=== PATIENT | male | born 1960 | race Caucasian/White ===

== ENCOUNTER 2018-08-15 07:42 | Day surgery (SDC) | payer MEDICARE, MEDICAID ==
[~2018-08-15] VITALS: Ht 182.9 cm; Wt 63.6 kg
[~2018-08-15 07:42] MED LIST: ALBU18HF2 INH; BUDE10.2 INH; GUAI100L97 PO; HYDR-565 PO; OMEP20CA10 PO
[2018-08-15 07:50] VITALS: BP 139/87
[2018-08-15] MEDS ORDERED: MIDAZolam 5mg/5ml vial ONE (08:14)
[2018-08-15] MEDS ORDERED: fentaNYL/PF 50MCG/1 ML 2ML syringe ONE (08:14)
[2018-08-15] MEDS ORDERED: LIDOcaine Viscous 15ml cup ONE (08:14)
[2018-08-15 09:08] VITALS: BP 131/77
[2018-08-15 09:18] VITALS: BP 113/82
[2018-08-15 09:28] VITALS: BP 116/72
[2018-08-15 09:38] VITALS: BP 128/80
== END 2018-08-15 09:39 | disposition home or self-care (01) ==
LOC: GI LAB 07:42
PROVIDERS: ATTEND Internal Medicine Gastroenterology
DX: K29.50 Unspecified chronic gastritis without bleeding (principal); K31.89 Other diseases of stomach and duodenum; K21.0 Gastro-esophageal reflux disease with esophagitis; M06.9 Rheumatoid arthritis, unspecified; F17.210 Nicotine dependence, cigarettes, uncomplicated; F10.21 Alcohol dependence, in remission; Z85.118 Personal history of other malignant neoplasm of bronchus and lung; Z79.891 Long term (current) use of opiate analgesic; Z98.890 Other specified postprocedural states; Z79.899 Other long term (current) drug therapy
CPT/HCPCS: 43239; J2250; J3010; J7030; 99152; A4620

== ENCOUNTER → 2019-11-24 | Emergency (ER) | payer MEDICARE, MEDICAID ==
[~2019-11-24] VITALS: Ht 182.9 cm; Wt 75.0 kg
[~2019-11-24] MED LIST changes: -GUAI100L97 PO; +HYDR-4353 PO; -HYDR-565 PO; +KETAMINE IV ONE; +LIDOcaine Viscous 15ml cup MM PRN; +NORMAL SALINE IV ONE; -OMEP20CA10 PO; +OMEP20CA15 PO; +famotidine/PF 10 mg/ml inj IV ONE; +fentaNYL/PF 50MCG/1 ML 2ML syringe IV ONE; +ketamine 10mg/ml 20ml inj IV ONE; +ketamine 50 mg/ml 10ml vial IV ONE; +mag hydrox/Alum hydrox/simeth 30ml oral suspension PO ONE; +normal saline 1000ML IV soln IVB ONE; +normal saline 1000ml 1,000 ML IV ONE; +ondansetron/PF 4mg/2ml inj IV ONE; +pantoprazole 40 MG vial IV ONE; +sucralfate 1gm/10ml UD suspension PO SCH
--- NOTE | 2019-11-24 11:10 | NUR ---
Discussed pt's pain and emesis with dayton wayne; new order received for fentynal and zofran
[2019-11-24 11:21] LABS: BASOPHILS # (AUTO) 0.2 X10'3 (0-0.2); BASOPHILS % (AUTO) 1.1 % (0-1); EOSINOPHILS # (AUTO) 0.2 X10'3 (0-0.9); HEMATOCRIT 45.1 % (42.0-52.0); HEMOGLOBIN 15.4 g/dl (14.0-17.9); LYMPHOCYTES % (AUTO) 5.2 % (21-51); MEAN CORPUSCULAR HEMOGLOBIN 33.2 PG (27.0-31.0); MEAN CORPUSCULAR HGB CONC 34.2 g/dL (33.0-36.5); MEAN CORPUSCULAR VOLUME 97.2 FL (78-98); MEAN PLATELET VOLUME 7.8 FL (7.4-10.4); MONOCYTES # (AUTO) 1.1 X10'3 (0-0.9); MONOCYTES % (AUTO) 5.8 % (2-12); NEUTROPHILS # (AUTO) 17.3 X10'3 (1.8-7.7); NEUTROPHILS % (AUTO) 86.9 % (42-75); PLATELET COUNT 526 X10'3 (140-440); RED BLOOD COUNT 4.64 X10'6 (4.70-6.10); RED CELL DISTRIBUTION WIDTH 13.2 % (11.5-14.5); WHITE BLOOD COUNT 19.8 X10'3 (4.5-11.0)
[2019-11-24 11:34] LABS: CLARITY,URINE CLEAR (Clear); COLOR,URINE YELLOW (Yellow); GLUCOSE, URINE NEGATIVE (Neg); KETONES,URINE 40 mg/dl (Neg); LEUKOCYTE ESTERASE ,URINE NEGATIVE (Neg); NITRITES, URINE NEGATIVE (Neg); OCCULT BLOOD,URINE NEGATIVE (Neg); PROTEIN,URINE NEGATIVE (Neg); UROBILINOGEN,URINE 0.2 E.U/dL (0.2-1.0)
[2019-11-24 11:35] LABS: UA COLLECTION TYPE VOIDED
[2019-11-24 11:36] LABS: ALANINE AMINOTRANSFERASE 25 U/L (12-78); ALBUMIN 3.5 G/DL (3.4-5.0); ALBUMIN/GLOBULIN RATIO 0.9 (1.1-1.5); ALKALINE PHOSPHATASE 111 IU/L (46-116); ANION GAP 15 (8-16); ASPARTATE AMINO TRANSFERASE 23 U/L (10-37); BILIRUBIN,TOTAL 0.4 MG/DL (0.1-1.0); BLOOD UREA NITROGEN 7 MG/DL (7-18); BUN/CREATININE RATIO 8.4 (5.4-32.0); CHLORIDE 94 MMOL/L (99-107); CREATININE 0.83 MG/DL (0.60-1.10); GLUCOSE 159 MG/DL (70-104); POTASSIUM 4.8 MMOL/L (3.5-5.1); SODIUM 136 MMOL/L (135-145); TOTAL CARBON DIOXIDE 26.7 MMOL/L (24-32); TOTAL PROTEIN 7.2 G/DL (6.4-8.2); eGFR > 90 ML/MIN
[2019-11-24 11:43] LABS: CALCIUM 9.2 MG/DL (8.5-10.1)
[2019-11-24 11:55] LABS: LIPASE 2830 U/L (73-393)
--- NOTE | 2019-11-24 12:02 | NUR ---
Discussed pt's pain and emesis with dayton wayne; additional order received for fentynal and zofran
[2019-11-24 12:25] LABS: ETHANOL < 0.010 GM/DL (0.0-0.010)
[2019-11-24 12:35] LABS: URINE AMPHETAMINE SCREEN NEGATIVE (Neg); URINE BARBITUATE SCREEN NEGATIVE (Neg); URINE BENZODIAZEPINES SCREEN NEGATIVE (Neg); URINE CANNABINOID SCREEN POSITIVE (Neg); URINE COCAINE SCREEN NEGATIVE (Neg); URINE METHADONE SCREEN NEGATIVE (Neg); URINE OPIATE SCREEN POSITIVE (Neg); URINE PHENCYCLIDINE SCREEN NEGATIVE (Neg)
[2019-11-24] MEDS: fentaNYL/PF 50MCG/1 ML 2ML syringe IV PRN ×2 (12:42→15:28)
--- NOTE | 2019-11-24 12:42 | NUR ---
Balance of 1205 Fentynal vial administered as new order came in ~1225 for Q15. Rather than waste medication, it was held in anticipation of future administration.
[2019-11-24 13:11] LABS: PLATELET ESTIMATE INCREASED; TOTAL CELLS COUNTED 100; TOXIC VACUOLATION FEW
[2019-11-24] MEDS: LIDOcaine Viscous 15ml cup MM PRN ×2 (13:33→17:33)
--- NOTE | 2019-11-24 16:03 | NUR ---
pt asleep on right side; awaiting acceptance and transfer to [facility].
--- NOTE | 2019-11-24 17:26 | NUR ---
Discussed pt's c/o of stomach discomfort and burning sensation with ADAIR Dc; new order for viscous lidocaine and maalox received.
[2019-11-24 18:56] VITALS: BP 172/96
== END | disposition home or self-care (01) ==
LOC: ER 10:39
DX: C78.00 Secondary malignant neoplasm of unspecified lung (principal); C79.51 Secondary malignant neoplasm of bone; R10.11 Right upper quadrant pain; R10.12 Left upper quadrant pain; J44.9 Chronic obstructive pulmonary disease, unspecified; R11.2 Nausea with vomiting, unspecified; G89.29 Other chronic pain; Z79.899 Other long term (current) drug therapy
CPT/HCPCS: 36415; 74176; 80053; 80305; 80320; 81003; 83605; 83690; 85025; 96361; 96374; 96375; 96376; 99285; C9113; J2405; J3010; J3490; J7030